=== PATIENT | male | born 1955 | race Two or more races ===

== ENCOUNTER 2024-04-15 14:17 | Emergency (ER) | payer MEDICARE ==
[~2024-04-15] VITALS: Ht 167.6 cm; Wt 75.0 kg
[2024-04-15 14:24] VITALS: BP 169/85; PULSE 100; RESP 18; TEMP 98
[2024-04-15] MEDS: IBUPROFEN 100 MG/5 ML SUSPENSION UDCUP PO ONE (17:08)
== END 2024-04-15 18:17 | disposition home or self-care (01) ==
LOC: EMS 14:17
DX: S50.12XA Contusion of left forearm, initial encounter (principal); Z87.81 Personal history of (healed) traumatic fracture; X58.XXXA Exposure to other specified factors, initial encounter; Y93.89 Activity, other specified; Y92.89 Other specified places as the place of occurrence of the external cause; Y99.8 Other external cause status
CPT/HCPCS: 99283